=== PATIENT | male | born 1965 | race Hispanic/Latino ===

== ENCOUNTER 2018-03-07 16:06 | Emergency (ER) | payer MEDICAID ==
[2018-03-07 17:10] VITALS: O2SAT 97; BMI 40.1
[2018-03-07 17:25] LABS: BASO # 0.1 K/uL (0.0-0.2); BASO % 0.8 % (0.0-2.0); EOS % 0.2 % (0.0-4.0); HEMOGLOBIN 15.3 g/dL (12.0-18.0); LYMPH # 1.3 K/uL (1.0-4.3); MEAN CELL VOLUME 83.3 fL (80.0-94.0); MEAN CORPUSCULAR HEMOGLOBIN 28.2 pg (27.0-31.0); MEAN CORPUSCULAR HGB CONC 33.8 g/dL (33.0-37.0); MEAN PLATELET VOLUME 7.2 fL (7.2-11.7); MONO # 0.9 K/uL (0.0-0.8); MONO % 7.6 % (0.0-10.0); NEUT # 9.7 K/uL (1.8-7.0); NEUT % 80.4 % (50.0-75.0); RBC 5.43 Mil/uL (4.40-5.90); RED CELL DISTRIBUTION WIDTH 13.8 % (11.5-14.5)
[2018-03-07 17:37] LABS: CALCIUM 9.9 mg/dl (8.6-10.4); GFR AFRICAN-AMERICAN > 60; GFR NON-AFRICAN AMERICAN > 60
[2018-03-07 17:44] LABS: ALB/GLOB RATIO 1.2 (1.0-2.1); ALBUMIN 4.6 g/dL (3.5-5.0); ALT/SGPT 37 U/L (21-72); AST/SGOT 35 U/L (17-59); BLOOD UREA NITROGEN 15 mg/dL (9-20)
[2018-03-07] MEDS ORDERED: oxyCODONE 5 mg Immediate Release Tab PO STA (17:53)
--- NOTE | 2018-03-07 18:01 | C.PDOC ---
History Of Present Illness 52 year old male presents to ED for evaluation of chronic lower back pain for a significant amount of time. Notes he felt some chest pain today because he was nervous about his back pain. He denies any chest pain, or shortness of breath at this time. Denies urinary symptoms, urinary/bowel incontinence, weakness, numbness, abdominal pain, fever, or any other associated symptoms at this time. Chief Complaint (Nursing): Chest Pain History Per: Patient History/Exam Limitations: no limitations Onset/Duration Of Symptoms: Days Current Symptoms Are (Timing): Still Present Quality Of Discomfort: "Pain" Previous Symptoms: Chronic Pain. denies: Neck Pain, Prior Injury Associated Symptoms: None. denies: Incontinence, New Weakness, New Numbness Exacerbating Factor(s): Nothing Recent travel outside of the [place]: No Additional History Per: Patient Past Medical History Reviewed: Historical Data, Nursing Documentation, Vital Signs Vital Signs: Last Vital Signs Temp 98.3 F 03/07/18 16:25 Pulse 79 03/07/18 16:25 Resp 16 03/07/18 16:25 BP Pulse Ox 97 03/07/18 18:06 - Medical History PMH: HTN Family History: States: Unknown Family Hx - Social History Hx Alcohol Use: No Hx Substance Use: No - Immunization History Hx Tetanus Toxoid Vaccination: Yes Hx Influenza Vaccination: No Hx Pneumococcal Vaccination: No Review Of Systems Except As Marked, All Systems Reviewed And Found Negative. Constitutional: Negative for: Fever, Chills Cardiovascular: Negative for: Chest Pain, Palpitations, Light Headedness Respiratory: Negative for: Cough, Shortness of Breath Gastrointestinal: Negative for: Nausea, Vomiting, Abdominal Pain, Diarrhea Genitourinary: Negative for: Dysuria, Frequency, Incontinence, Hematuria Musculoskeletal: Positive for: Back Pain Neurological: Negative for: Weakness, Numbness Physical Exam - Physical Exam Appears: Non-toxic, No Acute Distress Skin: Normal Color, Warm, Dry Head: Atraumatic, Normacephalic Eye(s): bilateral: Normal Inspection Oral Mucosa: Moist Neck: Supple Cardiovascular: Rhythm Regular Respiratory: Normal Breath Sounds, No Rales, No Rhonchi, No Wheezing Gastrointestinal/Abdominal: Soft, No Tenderness Back: Normal Inspection, No CVA Tenderness, No Vertebral Tenderness, No Paraspinal Tenderness Extremity: Normal ROM, No Tenderness, No Deformity Neurological/Psych: Oriented x3, Normal Speech ED Course And Treatment - Laboratory Results Result Diagrams: 03/07/18 17:20 03/07/18 17:20 ECG: Interpreted By Me, Viewed By Me ECG Rhythm: Sinus Rhythm ECG Interpretation: No Acute Changes Interpretation Of ECG: Normal axis, normal intervals Rate From EC (bpm) O2 Sat by Pulse Oximetry: 97 (RA) Pulse Ox Interpretation: Normal Medical Decision Making Medical Decision Making: Plan: Blood work CXR EKG Oxycodone Disposition - Disposition Referrals: [facility] [Outside] [facility] [Outside] Disposition: HOME/ ROUTINE Disposition Time: 18:40 Condition: IMPROVED Additional Instructions: SCOTT HARDY, thank you for letting us take care of you today. The emergency medical care you received today was directed at your acute symptoms. If you were prescribed any medication, please fill it and take as directed. It may take several days for your symptoms to resolve. Return to the Emergency Department if your symptoms worsen, do not improve, or if you have any other problems. Please contact your doctor or call one of the physicians/clinics you have been referred to that are listed on the Patient Visit Information form that is included in your discharge packet. Bring any paperwork you were given at discharge with you along with any medications you are taking to your follow up visit. Our treatment cannot replace ongoing medical care by a primary care provider outside of the emergency department. Thank you for allowing the [facility] team to be part of your care today. Follow up with the clinic this week for outpatient care and further management. Prescriptions: oxyCODONE [oxyCODONE Immediate Release Tab] 5 mg PO Q6 PRN #15 tab PRN Reason: Pain, Severe (8-10) Instructions: Low Back Pain (DC) Forms: [employer] (Frisian) - Clinical Impression Clinical Impression: Low back pain - Scribe Statement The provider has reviewed the documentation as recorded by the Scribe KP All medical record entries made by the Scribe were at my direction and personally dictated by me. I have reviewed the chart and agree that the record accurately reflects my personal performance of the history, physical exam, medical decision making, and the department course for this patient. I have also personally directed, reviewed, and agree with the discharge instructions and disposition.
[2018-03-07] MEDS ORDERED: oxyCODONE 5 mg Immediate Release Tab ONE (18:13)
[2018-03-07 18:54] VITALS: BP 148/90; PULSE 60; RESP 18; TEMP 98.1
--- NOTE | 2018-03-08 11:12 | RAD ---
Date of service: 03/07/2018 PROCEDURE: CHEST RADIOGRAPH, 1 VIEW HISTORY: chest pain COMPARISON: Has fine FINDINGS: LUNGS: Clear. PLEURA: No pneumothorax or pleural fluid seen. CARDIOVASCULAR: Normal. OSSEOUS STRUCTURES: No significant abnormalities. VISUALIZED UPPER ABDOMEN: Normal. OTHER FINDINGS: None. IMPRESSION: No active disease.
--- NOTE | 2018-03-08 23:20 | CARD ---
APPROVED REPORT Date of service: 03/07/2018 EKG Measurement Heart [id number] <Conclusion> Normal sinus rhythm Normal ECG
== END 2018-03-07 19:09 | disposition home or self-care (01) ==
LOC: C.ER 16:06
DX: M54.5 Low back pain (principal); I10 Essential (primary) hypertension

== ENCOUNTER 2018-03-09 11:25 | Emergency (ER) | payer MEDICAID ==
[2018-03-09 11:25] VITALS: BMI 40.1
[2018-03-09 11:42] VITALS: RESP 18
[2018-03-09] MEDS ORDERED: Dexamethasone 4 mg/1 ml IVP STA (12:34)
[2018-03-09 12:48] LABS: BASO # 0.1 K/uL (0.0-0.2); BASO % 1.8 % (0.0-2.0); EOS # 0.1 K/uL (0.0-0.7); EOS % 2.4 % (0.0-4.0); HEMOGLOBIN 15.4 g/dL (12.0-18.0); LYMPH # 1.6 K/uL (1.0-4.3); LYMPH % 27.3 % (20.0-40.0); MEAN CELL VOLUME 84.2 fL (80.0-94.0); MEAN CORPUSCULAR HEMOGLOBIN 28.6 pg (27.0-31.0); MEAN PLATELET VOLUME 7.5 fL (7.2-11.7); MONO # 0.5 K/uL (0.0-0.8); MONO % 9.5 % (0.0-10.0); NEUT # 3.4 K/uL (1.8-7.0); NRBC % 0.1 % (0.0-2.0); RBC 5.38 Mil/uL (4.40-5.90)
[2018-03-09 12:50] LABS: WHITE BLOOD COUNT 5.8 K/uL (4.8-10.8)
--- NOTE | 2018-03-09 12:52 | C.PDOC ---
History Of Present Illness 52 y/o male s/p injury at work 20 months ago presents to ED with c/o worse back pain and abdominal pain for 3 days after he slipped and fell 3 days ago. Patient states he has decreased appetite secondary to pain and admits to bladder incontinence. Patient states he had similar symptoms in past and was diagnosed with spinal spurs, was advised surgery but refused. Patient admits to nausea and denies fever, chills, dysuria, hematuria, vomiting or any other complaints at this time. Time Seen by Provider: 03/09/18 11:51 Chief Complaint (Nursing): Male Genitourinary History Per: Patient History/Exam Limitations: no limitations Onset/Duration Of Symptoms: Days Current Symptoms Are (Timing): Still Present Quality Of Discomfort: "Pain" Associated Symptoms: Nausea Past Medical History Reviewed: Historical Data, Nursing Documentation, Vital Signs Vital Signs: Last Vital Signs Temp 98.2 F 03/09/18 14:40 Pulse 70 03/09/18 14:40 Resp 18 03/09/18 14:40 BP 136/86 03/09/18 14:40 Pulse Ox 95 03/12/18 17:35 - Medical History PMH: HTN Surgical History: No Surg Hx Family History: States: No Known Family Hx - Social History Hx Alcohol Use: No Hx Substance Use: No - Immunization History Hx Tetanus Toxoid Vaccination: Yes Hx Influenza Vaccination: No Hx Pneumococcal Vaccination: No Review Of Systems Constitutional: Negative for: Fever, Chills Gastrointestinal: Positive for: Nausea, Abdominal Pain. Negative for: Vomiting , Diarrhea Genitourinary: Positive for: Incontinence. Negative for: Dysuria, Hematuria Musculoskeletal: Positive for: Back Pain Neurological: Negative for: Weakness, Numbness Physical Exam - Physical Exam Appears: Non-toxic, Other (In moderate distress) Skin: Warm, Dry, No Rash Head: Atraumatic, Normacephalic Eye(s): bilateral: Normal Inspection Oral Mucosa: Moist Neck: Supple Cardiovascular: Rhythm Regular Respiratory: Normal Breath Sounds, No Rales, No Rhonchi, No Wheezing Gastrointestinal/Abdominal: Soft, No Tenderness, No Guarding, No Rebound Back: No CVA Tenderness, Other (diffuse perilumbar tenderness) Extremity: Normal ROM, Capillary Refill (<2 seconds) Neurological/Psych: Oriented x3, Normal Speech, Normal Cognition, Normal Motor, Normal Sensation ED Course And Treatment - Laboratory Results Result Diagrams: 03/09/18 12:41 03/09/18 12:41 O2 Sat by Pulse Oximetry: 95 (RA) Pulse Ox Interpretation: Normal Medical Decision Making Medical Decision Making: Based on history of incontinence, MRI ordered for r/o cauda equina. Decadron and Ketorolac ordered. The patient reports that the pain continues and Morphine and the Lidocaine patch ordered. On first re-exam the patient is now walking up and down the ED with brisk steady gait and has no neuro deficits. Patient reports that he is unable to lay flat during the MRI of the spine and is requesting sedation. Ativan 2mg IV ordered. While at CT scan patient did not want to cooperate and MRI not performed. While in the ED, the patient was found to have stolen multiple patient's property. Police called and search was performed. On re-exam, the patient has normal physical exam and never had any episodes of incontinence. Patient was discharged in police custody. Disposition - Disposition Referrals: Peterson Babb MD [Non-Staff] - Disposition: HOME/ ROUTINE Disposition Time: 16:30 Condition: GOOD Additional Instructions: Follow up with the medical doctor/clinic within 1-2 days. Return if worsened. Instructions: Low Back Pain in Adults Forms: [facility] (Sinhala) - Clinical Impression Clinical Impression: Low back pain - PA / POOL HALL INSPECTOR / Resident Statement MD/DO has reviewed & agrees with the documentation as recorded. - Scribe Statement The provider has reviewed the documentation as recorded by the Matiibjorge Sanchez All medical record entries made by the Matiibjorge were at my direction and personally dictated by me. I have reviewed the chart and agree that the record accurately reflects my personal performance of the history, physical exam, medical decision making, and the department course for this patient. I have also personally directed, reviewed, and agree with the discharge instructions and disposition.
[2018-03-09 12:56] LABS: ALB/GLOB RATIO 1.2 (1.0-2.1); ALBUMIN 4.3 g/dL (3.5-5.0); ALT/SGPT 36 U/L (21-72); AST/SGOT 30 U/L (17-59); BLOOD UREA NITROGEN 12 mg/dL (9-20); CALCIUM 9.5 mg/dl (8.6-10.4); GFR AFRICAN-AMERICAN > 60; GFR NON-AFRICAN AMERICAN > 60; LIPASE 73 U/L (23-300)
[2018-03-09] MEDS ORDERED: Lidocaine 5% Patch TD STA (13:42)
[2018-03-09] MEDS ORDERED: Morphine 4 MG/ML VIAL ONE (14:27)
[2018-03-09] MEDS ORDERED: Lidocaine 5% Patch TD ONE (14:27)
[2018-03-09 14:40] VITALS: BP 136/86; PULSE 70; TEMP 98.2
[2018-03-09] MEDS ORDERED: diaZEpam 10 mg/2 ml Inj IVP ONE (15:37)
[2018-03-09 19:23] VITALS: O2SAT 95
== END 2018-03-09 16:52 | disposition home or self-care (01) ==
LOC: C.ER 11:25
DX: M54.5 Low back pain (principal); I10 Essential (primary) hypertension
CPT/HCPCS: 80053; 83690; 85025; 96374; 96375; 99284; J1100; J1885; J2060; J2270

== ENCOUNTER 2018-04-27 11:02 | Inpatient (IN) | payer OTHER ==
[2018-04-27 11:02] VITALS: BMI 40.1
--- NOTE | 2018-04-27 11:44 | C.PDOC ---
History Of Present Illness 52 year old male, whose PMHx includes OR x 2, two amputations, and IV drug abuse, presents to the ED for evaluation of a non-healing right hand abscess for the past 6 weeks. Patient was evaluated in this ED three weeks ago. He underwent incision and drainage and packing of the area, and was discharged with Bactrim. Patient states he has been noncompliant with the antibiotics. Patient notes the wound remains red and swollen. He denies fever, chills, nausea, and vomiting. Chief Complaint (Nursing): Abnormal Skin Integrity History Per: Patient History/Exam Limitations: no limitations Onset/Duration Of Symptoms: Days Current Symptoms Are (Timing): Still Present Location Of Injury: Right: Hand Quality Of Symptoms: Swollen Additional History Per: Patient Past Medical History Reviewed: Historical Data, Nursing Documentation, Vital Signs Vital Signs: Last Vital Signs Temp 97.8 F 04/27/18 11:22 Pulse 78 04/27/18 11:22 Resp 18 04/27/18 11:22 BP 136/81 04/27/18 11:22 Pulse Ox 100 04/27/18 11:22 - Medical History PMH: HTN Denies: Chronic Kidney Disease Surgical History: No Surg Hx Family History: States: Unknown Family Hx - Social History Hx Alcohol Use: No Hx Substance Use: Yes - Immunization History Hx Tetanus Toxoid Vaccination: Yes Hx Influenza Vaccination: No Hx Pneumococcal Vaccination: Yes Review Of Systems Constitutional: Negative for: Fever, Chills Gastrointestinal: Negative for: Nausea, Vomiting Skin: Positive for: Other (non-healing wound to right hand with erythema and swelling ) Physical Exam - Physical Exam Appears: Non-toxic, No Acute Distress Skin: Warm, Dry, Other (mid-dorsum of right hand, over 3rd MC: several openings that are erythematous and swollen ) Head: Atraumatic, Normacephalic Eye(s): bilateral: Normal Inspection Extremity: Normal ROM (able to open and close right hand ), Capillary Refill (less than 2 seconds ) Neurological/Psych: Oriented x3, Normal Speech, Normal Cognition, Normal Sensation ED Course And Treatment - Laboratory Results Result Diagrams: 04/27/18 12:18 04/27/18 12:18 O2 Sat by Pulse Oximetry: 100 (on RA) Pulse Ox Interpretation: Normal - Other Rad right hand XR X-Ray: Interpreted by Me, Viewed By Me, Read By Radiologist Interpretation: PROCEDURE: Right Hand Radiographs. HISTORY: abscess. COMPARISON: CT right hand with contrast performed 04/03/18. FINDINGS: BONES: No acute displaced fracture. JOINTS: No dislocation. SOFT TISSUES: Marked soft tissue swelling, particularly at the dorsum of the hand. No evidence of radiopaque foreign body. OTHER FINDINGS: None. IMPRESSION: Marked soft tissue swelling, particularly at the dorsum of the hand. - Incision & Drainage Of Abscess Anesthesia: Lidocaine 1% Procedure: Incised W/Scalpel Blade#: (11), Drained Pus, Irrigated Cavity W/Saline, Probed To Break Up Loculations, Packed W/Gauze, Cultures Obtained And Sent To Lab Medical Decision Making Medical Decision Making: Assessment: right hand abscess, failed PO antiboitics Progress: Will order labs, hand XR and IV antibiotics. Will admits for IV antibiotics, due to noncompliance with PO antibiotics. Incision and Drainage Procedure: Time out called prior to procedure. Area was prepped and draped in sterile manner. Site injected with 1% lidocaine without epinephrine. Linear incision made along the dorsum of right hand with sterile scalpel. Minimal purulent discharge expressed. Abscess was explored thoroughly and sequestered packets were opened with minimal bleeding. Wound was packed and bandaged. Patient tolerated well. Disposition - Disposition Disposition: HOSPITALIZED Disposition Time: 16:33 Condition: GOOD - Clinical Impression Clinical Impression: Cellulitis of hand - Scribe Statement The provider has reviewed the documentation as recorded by the Scribe (Katharine Staples) Provider Attestation: All medical record entries made by the Scribe were at my direction and personally dictated by me. I have reviewed the chart and agree that the record accurately reflects my personal performance of the history, physical exam, medical decision making, and the department course for this patient. I have also personally directed, reviewed, and agree with the discharge instructions and disposition.
[2018-04-27 12:21] LABS: BASO % 0.2 % (0.0-2.0); EOS # 0.3 K/uL (0.0-0.7); EOS % 5.4 % (0.0-4.0); HEMOGLOBIN 13.6 g/dL (12.0-18.0); LYMPH % 37.9 % (20.0-40.0); MEAN CELL VOLUME 84.5 fL (80.0-94.0); MEAN CORPUSCULAR HEMOGLOBIN 28.9 pg (27.0-31.0); MEAN CORPUSCULAR HGB CONC 34.2 g/dL (33.0-37.0); MEAN PLATELET VOLUME 7.1 fL (7.2-11.7); MONO # 0.5 K/uL (0.0-0.8); MONO % 9.5 % (0.0-10.0); NEUT # 2.5 K/uL (1.8-7.0); RBC 4.71 Mil/uL (4.40-5.90); RED CELL DISTRIBUTION WIDTH 14.4 % (11.5-14.5); WHITE BLOOD COUNT 5.3 K/uL (4.8-10.8)
--- NOTE | 2018-04-27 12:27 | RAD ---
PROCEDURE: Right Hand Radiographs. HISTORY: abscess COMPARISON: CT right hand with contrast performed 04/03/18 FINDINGS: BONES: No acute displaced fracture. JOINTS: No dislocation. SOFT TISSUES: Marked soft tissue swelling, particularly at the dorsum of the hand. No evidence of radiopaque foreign body. OTHER FINDINGS: None. IMPRESSION: Marked soft tissue swelling, particularly at the dorsum of the hand.
[2018-04-27] MEDS ORDERED: Clindamycin 600mg/50ml NS 600 MG/50 ML BAG IVPB ONE (12:31)
[2018-04-27 12:57] LABS: ALB/GLOB RATIO 1.3 (1.0-2.1); ALBUMIN 4.2 g/dL (3.5-5.0)
[2018-04-27] MEDS ORDERED: Lidocaine 1% Inj (20ml) IV ONE (13:11)
[2018-04-27] MEDS ORDERED: Lidocaine Hydrochloride 10 ML INJ ONE (13:15)
[2018-04-27 13:50] LABS: ALT/SGPT 26 U/L (21-72); AST/SGOT 33 U/L (17-59); BLOOD UREA NITROGEN 21 mg/dL (9-20); CALCIUM 9.3 mg/dl (8.6-10.4); GFR NON-AFRICAN AMERICAN > 60
[2018-04-27 16:24] VITALS: BP 113/72; PULSE 60; RESP 20; TEMP 97.7
--- NOTE | 2018-04-27 17:03 | CP.PCM.HP ---
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 Patient came to the ED on 04/03/2018 for the same complain that occured a week after he missed his vein when trying to inject himself with heroin. At the ED, I&D procedure was performed by surgical team, repacking the wound, and sending him home with bactrin abx. Patient reports that another red/black spot appeared afterwards, which he decided to puncture it twice with a razor that he previously cleaned with alcohol, and subsequently washing the incision with soap and water. Patient admits to continued experiencing pain and feeling warm. At this visit, Patient had an I&D with packing done by the ER physician. Patient at the time states his pain has improved but continues to feel the area as swollen and hot. Patient denies having used needles to inject IV illicit drugs. Patient denies any trauma to the hand. Patient denies fevers, chills, weakness or tingling in the right hand, chest pain, shortness of breath, palpitation, abdominal pain, nausea, vomiting, diarrhea, constipation. Patient denies sick contacts. PMD: none Pmhx: MIx2 (no stent placement), 1st left toe amputation, mechanical fall with trauma to lower back (2000) Shx: denies All: Norvasc, Penicillin Famhx: non contributory Soc hx: tobacco use 1/2 pack a day x 50+ years, denies alcohol use, admits to snorting heroin once a week, formerly injecting heroin everyday Present on Admission - Present on Admission Any Indicators Present on Admission: No Review of Systems - Constitutional Constitutional: absent: Chills, Fever, Weakness - Cardiovascular Cardiovascular: absent: Chest Pain, Dyspnea, Palpitations - Respiratory Respiratory: absent: Dyspnea - Gastrointestinal Gastrointestinal: absent: Abdominal Pain, Constipation, Diarrhea, Nausea, Vomiting - Musculoskeletal Musculoskeletal: absent: Muscle Weakness, Numbness, Tingling - Integumentary Integumentary: Swelling. absent: Bleeding Lesions Additional comments: swelling right dorsum of hand - Neurological Neurological: absent: Numbness - Endocrine Endocrine: absent: Palpitations Past Patient History - Infectious Disease Hx of Infectious Diseases: None - Past Medical History & Family History Past Medical History?: Yes - Past Social History Smoking Status: Heavy Smoker > 10 Cigarettes Daily - CARDIAC Hx Hypertension: Yes - PULMONARY Hx Respiratory Disorders: No - NEUROLOGICAL Hx Neurological Disorder: No - HEENT Hx HEENT Problems: No - RENAL Hx Chronic Kidney Disease: No - ENDOCRINE/METABOLIC Hx Endocrine Disorders: No - HEMATOLOGICAL/ONCOLOGICAL Hx Blood Disorders: No - INTEGUMENTARY Hx Dermatological Problems: No - MUSCULOSKELETAL/RHEUMATOLOGICAL Hx Falls: No - GASTROINTESTINAL Hx Gastrointestinal Disorders: No - GENITOURINARY/GYNECOLOGICAL Hx Genitourinary Disorders: No - PSYCHIATRIC Hx Substance Use: No - SURGICAL HISTORY Hx Surgeries: Yes Other/Comment: LEFT ARM SURGERY PER PATIENT - ANESTHESIA Hx Anesthesia: Yes Hx Anesthesia Reactions: Yes Meds Allergies/Adverse Reactions: Allergies Allergy/AdvReac Type Severity Reaction Status Date / Time amlodipine [From [facility]] Allergy Verified 03/09/18 11:42 Penicillins Allergy Verified 03/09/18 11:42 Physical Exam - Constitutional Appears: Well, Non-toxic, No Acute Distress - Head Exam Head Exam: ATRAUMATIC, NORMAL INSPECTION, NORMOCEPHALIC - Eye Exam Eye Exam: EOMI, Normal appearance - ENT Exam ENT Exam: Mucous Membranes Moist, Normal Exam - Neck Exam Neck exam: Positive for: Full Rom, Normal Inspection - Respiratory Exam Respiratory Exam: Clear to Auscultation Bilateral, NORMAL BREATHING PATTERN. absent: Rales, Rhonchi, Wheezes - Cardiovascular Exam Cardiovascular Exam: REGULAR RHYTHM, +S1, +S2. absent: Tachycardia - GI/Abdominal Exam GI & Abdominal Exam: Normal Bowel Sounds, Soft. absent: Distended - Extremities Exam Extremities exam: Positive for: full ROM, normal inspection. Negative for: pedal edema, tenderness - Back Exam Back exam: FULL ROM, NORMAL INSPECTION - Neurological Exam Neurological exam: Alert, Oriented x3 - Psychiatric Exam Psychiatric exam: Normal Affect, Normal Mood - Skin Skin Exam: Dry, Normal Color, Warm Additional comments: 1cmx 1cm open incision, with packing on dorsum aspect of 3rd metatarsal area right hand with surrounding edema, warm to palpation, nontender. Two lesions surrounding open incision, closed, not erythematous Results - Vital Signs Recent Vital Signs: Last Vital Signs Temp 97.7 F 04/27/18 16:23 Pulse 60 04/27/18 16:23 Resp 20 04/27/18 16:23 BP 113/72 04/27/18 16:23 Pulse Ox 95 04/27/18 16:23 - Labs Result Diagrams: 04/27/18 12:18 04/27/18 12:18 Labs: Laboratory Results - last 24 hr 04/27/18 04/27/18 12:18 12:18 WBC 5.3 RBC 4.71 Hgb 13.6 Hct 39.8 MCV 84.5 MCH 28.9 MCHC 34.2 RDW 14.4 Plt Count 283 MPV 7.1 L Neut % (Auto) 47.0 L Lymph % (Auto) 37.9 [place] % (Auto) 9.5 Eos % (Auto) 5.4 H Baso % (Auto) 0.2 Neut # (Auto) 2.5 Lymph # (Auto) 2.0 [place] # (Auto) 0.5 Eos # (Auto) 0.3 Baso # (Auto) 0.0 Sodium 142 Potassium 5.0 Chloride 102 Carbon Dioxide 29 Anion Gap 16 BUN 21 H Creatinine 0.9 Est GFR ( Amer) > 60 Est GFR (Non-Af Amer) > 60 Random Glucose 86 Calcium 9.3 Total Bilirubin 0.4 AST 33 ALT 26 Alkaline Phosphatase 85 Total Protein 7.5 Albumin 4.2 Globulin 3.3 Albumin/Globulin Ratio 1.3 Assessment & Plan - Assessment and Plan (Free Text) Plan: Right dorsum hand cellulitis vs abscess - Right hand Xray: Marked soft tissue swelling dorsum of hand, no dislocation, no fracture - WBC: 5.3, afebrile at 97.8 - CT right hand w/o contrast - pending results - Blood cultures, wound cultures collected at ED - pending results - Started Vancomycin 1gm IVPB Q12hrs - F/u AM labs (CBC, CMP) IV heroin abuse disorder, currently on methadone treatment - Patient on methadone treatment @ [facility]. Counselor's name at clinic is Joselin - Patient states to be on 110mg methadone - Contacted [facility], but office was closed. Clinic is open at 6 am. - Confirm methadone dose with clinic - will continue methadone 110mg for tomorrow, unless otherwise stated after confirming dose with [facility] staff. ppx: DVT: Heparin SC 5,000 Q12, SCDs GI : pepcid 20mg PO BID Regular diet Plan discussed with Dr Nitza Walton, PGY-1 - Date & Time Date: 04/27/18 Time: 15:30 <Gomez Goddard - Last Filed: 05/17/18 15:37> Results - Vital Signs Recent Vital Signs: Last Vital Signs Temp 97.7 F 04/27/18 16:23 Pulse 60 04/27/18 16:23 Resp 20 04/27/18 16:23 BP 113/72 04/27/18 16:23 Pulse Ox 100 05/02/18 11:19 - Labs Result Diagrams: 04/27/18 12:18 04/27/18 12:18 Attending/Attestation - Attestation I have personally seen and examined this patient.: Yes I have fully participated in the care of the patient.: Yes I have reviewed all pertinent clinical information: Yes Notes (Text): Right dorsum hand cellulitis and abscess IV heroin abuse disorder with recent use Also currently on methadone treatment
--- NOTE | 2018-04-27 17:15 | CT ---
CT right hand HISTORY: Cellulitis. Abscess. Comparison: None available. Technique: Multiple contiguous axial images were performed through the right hand with the use of intravenous contrast. Subsequently, sagittal and coronal reformatted images were obtained. This CT exam was performed using one or more of the following dose reduction techniques: Automated exposure control, adjustment of the mA and/or kV according to patient size, and/or use of iterative reconstruction technique. Findings: Markedly limited study secondary to suboptimal patient positioning and technique. Prominent soft tissue defect measuring 1.3 x 0.7 centimeters seen within the dorsal aspect of the right hand at the level of the mid 2nd and 3rd metatarsal bones. Prominent reticulation and edema within the dorsal sided subcutaneous soft tissues consistent with a cellulitis. In addition, there is more confluent organizing low attenuation measuring 2.6 x 1.0 centimeters seen within the soft tissues at the level of the volar side of the interspace of the 2nd and 3rd metatarsal bones which may represent developing phlegmon and/or developing abscess formation. This may abut the 2nd extensor tendon sheath on series 3 images 120 through 130 as well as the 3rd extensor tendon sheath on series 3 images 105 through 122. Further evaluation with a contrast-enhanced MRI would be helpful to better evaluate for tendinous involvement if clinically indicated. Bone island in the lunate bone. Impression: Markedly limited study secondary to suboptimal patient positioning and technique. Prominent soft tissue defect measuring 1.3 x 0.7 centimeters seen within the dorsal aspect of the right hand at the level of the mid 2nd and 3rd metatarsal bones. Prominent reticulation and edema within the dorsal sided subcutaneous soft tissues consistent with a cellulitis. In addition, there is more confluent organizing low attenuation measuring 2.6 x 1.0 centimeters seen within the soft tissues at the level of the volar side of the interspace of the 2nd and 3rd metatarsal bones which may represent developing phlegmon and/or developing abscess formation. This may abut the 2nd extensor tendon sheath on series 3 images 120 through 130 as well as the 3rd extensor tendon sheath on series 3 images 105 through 122. Further evaluation with a contrast-enhanced MRI would be helpful to better evaluate for tendinous involvement if clinically indicated.
[2018-04-27] MEDS ORDERED: Vancomycin 1 gm/NS 200 ml 1 GM/200 ML BAG IVPB SCH (22:00)
[2018-05-02 11:19] VITALS: O2SAT 100
--- NOTE | 2018-05-17 15:38 | CP.PCM.DIS ---
Provider - Provider Date of Admission: 04/27/18 14:04 Attending physician: Gomez Goddard MD Time Spent in preparation of Discharge (in minutes): 35 Hospital Course - Lab Results Lab Results: Micro Results 04/27/18 13:42 Blood Blood Culture - Final NO GROWTH AFTER 5 DAYS 04/27/18 13:42 Blood Gram Stain - Final TEST NOT PERFORMED 04/27/18 13:42 Blood Blood Culture - Final NO GROWTH AFTER 5 DAYS 04/27/18 13:42 Blood Gram Stain - Final TEST NOT PERFORMED 04/27/18 12:28 Hand - Right Gram Stain - Final 04/27/18 12:28 Hand - Right Wound Culture - Final Corynebacterium Species Most Recent Lab Values WBC 5.3 K/uL (4.8-10.8) 04/27/18 12:18 RBC 4.71 Mil/uL (4.40-5.90) 04/27/18 12:18 Hgb 13.6 g/dL (12.0-18.0) 04/27/18 12:18 Hct 39.8 % (35.0-51.0) 04/27/18 12:18 MCV 84.5 fL (80.0-94.0) 04/27/18 12:18 MCH 28.9 pg (27.0-31.0) 04/27/18 12:18 MCHC 34.2 g/dL (33.0-37.0) 04/27/18 12:18 RDW 14.4 % (11.5-14.5) 04/27/18 12:18 Plt Count 283 K/uL (130-400) 04/27/18 12:18 MPV 7.1 fL (7.2-11.7) L 04/27/18 12:18 Neut % (Auto) 47.0 % (50.0-75.0) L 04/27/18 12:18 Lymph % (Auto) 37.9 % (20.0-40.0) 04/27/18 12:18 [place] % (Auto) 9.5 % (0.0-10.0) 04/27/18 12:18 Eos % (Auto) 5.4 % (0.0-4.0) H 04/27/18 12:18 Baso % (Auto) 0.2 % (0.0-2.0) 04/27/18 12:18 Neut # (Auto) 2.5 K/uL (1.8-7.0) 04/27/18 12:18 Lymph # (Auto) 2.0 K/uL (1.0-4.3) 04/27/18 12:18 Routt # (Auto) 0.5 K/uL (0.0-0.8) 04/27/18 12:18 Eos # (Auto) 0.3 K/uL (0.0-0.7) 04/27/18 12:18 Baso # (Auto) 0.0 K/uL (0.0-0.2) 04/27/18 12:18 Sodium 142 mmol/L (132-148) 04/27/18 12:18 Potassium 5.0 mmol/L (3.6-5.2) 04/27/18 12:18 Chloride 102 mmol/L (98-107) 04/27/18 12:18 Carbon Dioxide 29 mmol/L (22-30) 04/27/18 12:18 Anion Gap 16 (10-20) 04/27/18 12:18 BUN 21 mg/dL (9-20) H 04/27/18 12:18 Creatinine 0.9 mg/dL (0.8-1.5) 04/27/18 12:18 Est GFR ( Amer) > 60 04/27/18 12:18 Est GFR (Non-Af Amer) > 60 04/27/18 12:18 Random Glucose 86 mg/dL (75-110) 04/27/18 12:18 Calcium 9.3 mg/dl (8.6-10.4) 04/27/18 12:18 Total Bilirubin 0.4 mg/dL (0.2-1.3) 04/27/18 12:18 AST 33 U/L (17-59) 04/27/18 12:18 ALT 26 U/L (21-72) 04/27/18 12:18 Alkaline Phosphatase 85 U/L (38-126) 04/27/18 12:18 Total Protein 7.5 g/dL (6.3-8.3) 04/27/18 12:18 Albumin 4.2 g/dL (3.5-5.0) 04/27/18 12:18 Globulin 3.3 gm/dL (2.2-3.9) 04/27/18 12:18 Albumin/Globulin Ratio 1.3 (1.0-2.1) 04/27/18 12:18 - Hospital Course Hospital Course: Right dorsum hand cellulitis and abscess IV heroin abuse disorder recently currently on methadone treatment Left AMA Discharge Exam - Head Exam Head Exam: ATRAUMATIC, NORMAL INSPECTION, NORMOCEPHALIC Discharge Plan - Follow Up Plan Condition: GOOD Disposition: AGAINST MEDICAL ADVICE Instructions: Cellulitis (DC), Cellulitis (GEN), Abscess (GEN), Back Pain (GEN)
== END 2018-04-27 18:25 | disposition left against medical advice (07) | DRG 383 ==
LOC: C.ER 11:02 → C.9E 14:04 → C.3T 14:48
PROVIDERS: ADMIT Internal Medicine; ATTEND Internal Medicine
DX: L03.113 Cellulitis of right upper limb (principal); F11.20 Opioid dependence, uncomplicated; I10 Essential (primary) hypertension; L02.511 Cutaneous abscess of right hand; I25.2 Old myocardial infarction; Z91.19 Patient's noncompliance with other medical treatment and regimen; F17.210 Nicotine dependence, cigarettes, uncomplicated

== ENCOUNTER 2018-06-22 18:05 | Emergency (ER) | payer OTHER ==
[2018-06-22 18:05] VITALS: BMI 40.1
[2018-06-22 18:19] VITALS: TEMP 98.6
--- NOTE | 2018-06-22 18:43 | C.PDOC ---
History Of Present Illness 52 year old male presents to the ED for evaluation of worsening left shoulder pain sustained after a heavy box fell on his shoulder x5 days. Patient reports the pain today while working. Denies headache, dizziness, CP, SOB, dyspnea, palpitation, denies deformities , weakness, numbness to Left arm, and any other associated symptoms. Time Seen by Provider: 06/22/18 18:19 Chief Complaint (Nursing): Upper Extremity Problem/Injury History Per: Patient History/Exam Limitations: no limitations Onset/Duration Of Symptoms: Days Current Symptoms Are (Timing): Still Present Past Medical History Reviewed: Historical Data, Nursing Documentation, Vital Signs Vital Signs: Last Vital Signs Temp 98.6 F 06/22/18 18:16 Pulse 71 06/22/18 18:16 Resp 18 06/22/18 18:16 BP 149/81 06/22/18 18:16 Pulse Ox 95 06/22/18 18:16 - Medical History PMH: HTN Denies: Chronic Kidney Disease Family History: States: Unknown Family Hx - Social History Hx Alcohol Use: No Hx Substance Use: Yes - Immunization History Hx Tetanus Toxoid Vaccination: Yes Hx Influenza Vaccination: No Hx Pneumococcal Vaccination: Yes Review Of Systems Except As Marked, All Systems Reviewed And Found Negative. Constitutional: Negative for: Fever Musculoskeletal: Positive for: Shoulder Pain (left. ). Negative for: Other (deformities.) Neurological: Negative for: Weakness, Numbness, Incoordination Physical Exam - Physical Exam Appears: Well, Non-toxic, No Acute Distress Skin: Normal Color, Warm, Dry, No Ecchymosis Head: Atraumatic, Normacephalic Eye(s): bilateral: PERRL Oral Mucosa: Moist Neck: Normal ROM, Trachea Midline, No Midline Cervical Tenderness, No Paracervical Tenderness, No Step Off Deformity, Supple Cardiovascular: Rhythm Regular, No Murmur, No JVD, Other ((-) carotid bruits B/L) Respiratory: No Decreased Breath Sounds, No Accessory Muscle Use, No Stridor, No Wheezing Extremity: Normal ROM (of the left shoulder.), Tenderness (the superior aspect of the left shoulder.), No Deformity, No Swelling Pulses: Left Radial: Normal, Right Radial: Normal Neurological/Psych: Oriented x3, Normal Speech, Normal Cognition, Normal Motor, Normal Sensation, Normal Reflexes ED Course And Treatment O2 Sat by Pulse Oximetry: 95 (RA) Pulse Ox Interpretation: Normal - Other Rad Left shoulder X-Ray: Interpreted by Me, Viewed By Me Interpretation: (+) calcifictaion, no acute fx or dislocation Progress Note: Plan: LF Shoulder xray. Ultram. On re-eval, pt afebrile, hemodynamicalys table. NOn-toxic. PuslEOx 95% RA. neck: Supple, (-) carotid bruits B/L, (-) JVD. CVS: (+)S1S2, reg. Lungs: CTA B/L, BS equal B/L. Left shoulder: mild tenderness superior aspect . FAROM, no neurovascular deficits. neuorlogicaly intact. Imaging review (+) mild intra-articular calcification, no acute fx or dislocation.Pt advised. ref. to f/u with Ortho In 1-2 days for re- eavl. return if any worsening or new changes. Disposition Counseled Patient/Family Regarding: Studies Performed, Diagnosis, Need For Followup, Rx Given - Disposition Referrals: [facility] at [facility] [Outside] Markell Miller III, MD [Staff Provider] - Disposition: HOME/ ROUTINE Disposition Time: 19:00 Condition: STABLE Additional Instructions: LIght duty, avoid left arm lifting for 1-2 weeks Take medication as prescribed Follow up with PMD in 2-3 days for re-evaluation. return to ED if any worsening or new changes Prescriptions: Methocarbamol [Robaxin] 500 mg PO TID #14 tab Prednisone [Deltasone] 40 mg PO DAILY #6 tablet Instructions: Shoulder Sprain Forms: [facility] ([place]) - Clinical Impression Clinical Impression: Shoulder strain - PA / DIRECTOR OF RADIO SERVICES / Resident Statement MD/DO has reviewed & agrees with the documentation as recorded. (Lesvia Beaver) - Scribe Statement The provider has reviewed the documentation as recorded by the Scribe All medical record entries made by the Scribe were at my direction and personally dictated by me. I have reviewed the chart and agree that the record accurately reflects my personal performance of the history, physical exam, medical decision making, and the department course for this patient. I have also personally directed, reviewed, and agree with the discharge instructions and disposition.
[2018-06-22 19:26] VITALS: BP 145/79; PULSE 82; RESP 16; O2SAT 98
--- NOTE | 2018-06-23 08:25 | RAD ---
Date of service: 06/22/2018 PROCEDURE: Radiographs of the Left Shoulder HISTORY: injury COMPARISON: No prior. FINDINGS: BONES: No acute fracture or destructive bony lesion identified. Limited fibrocystic change are appreciate the superolateral humeral head. JOINTS: Limited degenerative cortical sclerosis appreciated at the glenohumeral and acromioclavicular joints. No subluxation or dislocation appreciated. SOFT TISSUES: Normal. OTHER FINDINGS: None. IMPRESSION: No acute fracture or dislocation left shoulder. Degenerative changes appear mild as discussed above.
== END 2018-06-22 19:25 | disposition home or self-care (01) ==
LOC: C.ER 18:05
DX: S46.912A Strain of unspecified muscle, fascia and tendon at shoulder and upper arm level, left arm, initial encounter (principal); W22.8XXA Striking against or struck by other objects, initial encounter

== ENCOUNTER 2018-08-11 11:25 | Emergency (ER) | payer OTHER ==
[2018-08-11 11:25] VITALS: BMI 40.1
[2018-08-11 11:39] VITALS: RESP 18
--- NOTE | 2018-08-11 13:01 | C.PDOC ---
History Of Present Illness Pt states that he injured his right arm while moving a dresser. He states that he felt a "pop" in his right arm. Time Seen by Provider: 08/11/18 12:46 Chief Complaint (Nursing): Upper Extremity Problem/Injury History Per: Patient Onset/Duration Of Symptoms: Days (about 1 week ago) Current Symptoms Are (Timing): Still Present Severity: Moderate Exacerbating Factor(s): Strenuous Use Of Affected Area Additional History Per: Prior Records Past Medical History Reviewed: Historical Data, Nursing Documentation, Vital Signs Vital Signs: Last Vital Signs Temp 97.8 F 08/11/18 11:36 Pulse 85 08/11/18 11:36 Resp 18 08/11/18 11:36 BP 128/84 08/11/18 11:36 Pulse Ox 96 08/11/18 11:36 - Medical History PMH: HTN Family History: States: Unknown Family Hx - Social History Hx Alcohol Use: No Hx Substance Use: Yes - Immunization History Hx Tetanus Toxoid Vaccination: Yes Hx Influenza Vaccination: No Hx Pneumococcal Vaccination: Yes Review Of Systems Except As Marked, All Systems Reviewed And Found Negative. Constitutional: Negative for: Fever Cardiovascular: Negative for: Chest Pain Respiratory: Negative for: Shortness of Breath Gastrointestinal: Negative for: Vomiting, Abdominal Pain Musculoskeletal: Positive for: Arm Pain (right), Back Pain (low). Negative for: Neck Pain, Hand Pain Skin: Positive for: Bruising Neurological: Negative for: Weakness, Numbness Physical Exam - Physical Exam Appears: Non-toxic, No Acute Distress Skin: Warm, Dry, Ecchymosis (on anterior right arm) Head: Atraumatic, Normacephalic Neck: Normal ROM, No Midline Cervical Tenderness, No Step Off Deformity, Supple Extremity: Normal ROM, Capillary Refill (wnl), Other (tenderness of right biceps muscle with swelling.) Pulses: Right Radial: Normal Neurological/Psych: Oriented x3, Normal Motor, Normal Sensation ED Course And Treatment O2 Sat by Pulse Oximetry: 96 Pulse Ox Interpretation: Normal Progress Note: Pt was placed in a right arm sling by me. Disposition Counseled Patient/Family Regarding: Diagnosis, Need For Followup - Disposition Referrals: [facility] [Outside] Zhen Bean MD [Staff Provider] - Disposition: HOME/ ROUTINE Disposition Time: 13:03 Condition: STABLE Additional Instructions: Use sling as instructed to rest your right arm. Follow up with an mgmt specialist within 1-2 week for further evaluation and treatment. Return to the ER if you develop worsening of symptoms or have any other concerns. Instructions: Biceps Tendon Rupture Forms: [facility] ([place]), Work Excuse - Clinical Impression Clinical Impression: Traumatic partial tear of right biceps tendon
[2018-08-11 13:33] VITALS: BP 130/70; PULSE 67; TEMP 98.1; O2SAT 95
== END 2018-08-11 13:15 | disposition home or self-care (01) ==
LOC: C.ER 11:25
DX: S46.811A Strain of other muscles, fascia and tendons at shoulder and upper arm level, right arm, initial encounter (principal); X50.9XXA Other and unspecified overexertion or strenuous movements or postures, initial encounter